=== PATIENT | male | born 1955 | race Caucasian/White ===

== ENCOUNTER 2022-09-30 16:27 | Emergency (ER) | payer SELFPAY ==
[2022-09-30 16:29] VITALS: BP 252/114; PULSE 65; RESP 18; TEMP 36.5; O2SAT 98
--- NOTE | 2022-09-30 16:41 | PC.NURSE ---
Pt ambulates into ER c/o a dog bite to his right hand to the dorsal part. Pt is a vet working with a pit bull. PMS is present distal to the injury. Pt does have a numbing sensation across the dorsal part of his hand. Pt applied a bandage to help control the bleeding. A new bandage was applied and bleeding is controlled at this time.
--- NOTE | 2022-09-30 16:46 | PC.NURSE ---
Mark was a stray on it's way to receive it's shots. Pt believes the dog had not received any shots.
--- NOTE | 2022-09-30 17:45 | ED.ANIMALBIT ---
HPI - Animal Bite General Chief Complaint: Animal Bite <YVETTE Hart Last Filed: 10/01/22 03:30> Stated Complaint: dog bite <YVETTE Hart Last Filed: 10/01/22 03:30> Time Seen by Provider: 09/30/22 16:56 <YVETTE Hart Last Filed: 10/01/22 03:30> Source: patient <YVETTE Hart Last Filed: 10/01/22 03:30> Mode of arrival: ambulatory <YVETTE Hart Filed: 10/01/22 03:30> Limitations: no limitations <YVETTE Hart Last Filed: 10/01/22 03:30> History of Present Illness HPI narrative: Patient is a 67-year-old male who presents to the ED with report of a dog bite to his right hand. Patient works as a welder/fitter and was bitten by a pit bull dog in his right hand around 4:30 PM today. He sustained several large gaping lacerations to the dorsum of his right hand and wrist. He has exposed nerve and bone. He reports numbness to the dorsum of his hand between the second through fourth metacarpals. He is able to move his right hand and fingers completely. The dog was not up-to-date on his vaccinations, though patient states he is not concern for rabies. Patient's tetanus status is unknown. <YVETTE Hart Last Filed: 10/01/22 03:30> Related Data Allergies/Adverse Reactions: Allergies Allergy/AdvReac Type Severity Reaction Status Date / Time No Known Allergies Allergy Verified 09/30/22 16:38 <YVETTE Hart Last Filed: 10/01/22 03:30> Review of Systems Review of Systems: CONSTITUTIONAL: Denies fever, chills, or sweats. SKIN: See HPI. MUSCULOSKELETAL: See HPI. NEUROLOGIC: See HPI. <YVETTE Hart Last Filed: 10/01/22 03:30> All systems reviewed & are unremarkable except as noted in HPI and below <Ashley Troy PA-C - Last Filed: 10/01/22 03:30> Exam Narrative: GENERAL: Well appearing, obese with BMI of 30.9, non-toxic, in no acute distress. HEAD: Normocephalic, atraumatic. NECK: Supple. No adenopathy, no masses. RESPIRATORY: Airway patent, respirations nonlabored. Clear to auscultation bilaterally, no rales, rhonchi, wheezing. CARDIOVASCULAR: Regular rate and rhythm without murmurs, rubs, or gallops. Radial pulses 2+ and equal bilaterally. MUSCULOSKELETAL: Full range of motion of right hand, wrist, fingers. Large jagged lacerations to dorsum of right wrist extending into distal dorsal hand. Macerated skin. Small area of bleeding to R lateral wrist near distal ulna. No pulsatile bleeding. Exposed distal ulna bone through laceration. Exposed nerve hanging out of laceration. Numbness to dull and sharp sensation reported to dorsum of right hand between areas of second through fourth metacarpals. Distal sharp touch sensation intact to all fingers. Crepitus palpated throughout dorsal hand and extending up R forearm approx 5cm past lacerations. SKIN: Warm, dry, normal color. No rashes. NEURO: A&O X3. Speech clear. Cranial nerves II-XII grossly intact. Steady gait. No ataxic movements. PSYCHIATRIC: Appropriate mood and affect. Normal interaction. <Ashley Troy PA-C - Last Filed: 10/01/22 03:30> Course BRUSH MAKER/PA Physician Supervision For this patient encounter, I reviewed the BRUSH MAKER or PA documentation, treatment plan, and medical decision making; and I had [id number] time with this patient. <Nathaniel Kumar MD - Last Filed: 09/30/22 18:27> Vital Signs Vital signs: Vital Signs Temperature 97.7 F 09/30/22 16:29 Pulse Rate 65 09/30/22 16:29 Respiratory Rate 18 09/30/22 16:29 Blood Pressure 252/114 H 09/30/22 16:29 Pulse Oximetry 98 09/30/22 16:29 Oxygen Delivery Room Air 09/30/22 16:29 Temperature 97.7 F 09/30/22 16:29 Pulse Rate 85 09/30/22 18:34 Respiratory Rate 16 09/30/22 18:34 Blood Pressure 224/120 H 09/30/22 18:34 Pulse Oximetry 100 09/30/22 18:34 Oxygen Delivery Room Air
[2022-09-30 17:52] VITALS: BP 215/118; PULSE 97; RESP 18; O2SAT 99
[2022-09-30] MEDS: AMOXICILLIN/CLAVULANATE K 875-125 MG TAB 1 TABLET PO (17:59)
[2022-09-30] MEDS: TETANUS,DIPHTHERIA,AC PERTUSSIS ADULT (0.5 ML) BOOSTRIX IM (18:00)
[2022-09-30 18:34] VITALS: BP 224/120; PULSE 85; RESP 16; O2SAT 100
--- NOTE | 2022-09-30 18:34 | PC.NURSE ---
A tefla dressing is wrapped with coban to help control bleeding and reduce swelling at this time. ERP then orders for a splint to support pt's wrist and prevent further bleeding. The splint is applied and wrapped with an kiah wrap. PMS is present distal to the wrapping.
== END 2022-09-30 18:37 | disposition short-term general hospital (02) ==
PROVIDERS: Emergency Provider Physician Assistant; PCP Family Medicine
DX: S61.451A Open bite of right hand, initial encounter (principal); W54.0XXA Bitten by dog, initial encounter; R03.0 Elevated blood-pressure reading, without diagnosis of hypertension; Z23 Encounter for immunization
CPT/HCPCS: 90471; 90715; 99283; A9270